=== PATIENT | male | born 1950 | race Caucasian/White ===

== ENCOUNTER 2017-07-22 02:48 | Emergency (ER) | payer MEDICARE, BC | END 2017-07-22 05:35 | disposition home or self-care (01) | LOC: D.ER 02:48 | DX: S00.12XA Contusion of left eyelid and periocular area, initial encounter (principal); W01.0XXA Fall on same level from slipping, tripping and stumbling without subsequent striking against object, initial encounter; Y93.89 Activity, other specified; Y92.019 Unspecified place in single-family (private) house as the place of occurrence of the external cause; S02.32XA Fracture of orbital floor, left side, initial encounter for closed fracture; I95.1 Orthostatic hypotension ==

== ENCOUNTER 2017-07-31 10:12 | Outpatient (CLI) | payer MEDICARE, BC ==
[~2017-07-31] VITALS: Ht 170.2 cm; Wt 97.1 kg
--- NOTE | ~2017-07-31 | HP ---
PATIENT: RICCO AHUJA MEDICAL RECORD: [id number] ACCOUNT: [id number] LOCATION:COT[facility] : 52 ADMISSION DATE: 07/31/17 HISTORY AND PHYSICAL EXAMINATION HISTORY OF PRESENT ILLNESS: Mr. Ahuja had a fall, just about a week ago suffered a left orbital blowout fracture. He has had problems with diplopia, pain on upward gaze, and numbness on the left side of his nose. CT identified a significant orbital blowout fracture. He has been admitted for open reduction internal fixation of left orbital blowout fracture. PAST MEDICAL HISTORY: Includes diabetes, hypertension, COPD, coronary artery disease, CVA. PAST SURGICAL HISTORY: Includes cardiac ablation, cardiac stents, ACL repair. CURRENT MEDICATIONS: Metoprolol, Eliquis which has been held, aspirin has been held, spironolactone, minoxidil, lorazepam, gabapentin, duloxetine, Flexeril. ALLERGIES: HYDROCODONE, LISINOPRIL, AMLODIPINE, ISORDIL, FLECAINIDE. PHYSICAL EXAMINATION: GENERAL: He is healthy appearing. He is alert and oriented. FACE: He has left periorbital ecchymosis. NOSE: No masses, polyps, or drainage. ORAL CAVITY AND OROPHARYNX: No trismus. Tongue protrudes in midline, upper teeth are stable and are sore to him. NECK: No mass. No adenopathy. NEUROLOGICAL: His extraocular movements are intact, but does have some pain on gaze consistent with muscle. Entrapment issues, he has got numbness on the left side of his face in V2 distribution. IMPRESSION: Left orbital blowout fracture. PLAN: ORIF, left orbital blowout fracture. TRANSINT:[id number] Voice Confirmation ID: [id number] DOCUMENT ID: [id number] EMILIA PHILLIPS MD CC: [id number] DICTATION DATE: 07/28/17 0839 INTERIOR ASSEMBLIES DEVELOPER PROVER: 07/28/17 0959 PRE [facility] [address] [place] [address]
[2017-07-31] MEDS ORDERED: LONITEN2.5 MG PO (11:36)
[2017-07-31] MEDS ORDERED: LOVASTATIN40 MG PO (11:36)
[2017-07-31] MEDS ORDERED: ELIQUIS5 MG PO (11:37)
[2017-07-31] MEDS ORDERED: AUGMENTIN 875-11 TAB PO (11:37)
[2017-07-31] MEDS ORDERED: CYMBALTA60 MG PO (11:38)
[2017-07-31] MEDS ORDERED: ATIVAN1 MG PO (11:38)
[2017-07-31] MEDS ORDERED: GABAPENTIN100 MG PO (11:39)
[2017-07-31] MEDS ORDERED: ALDACTONE25 MG PO (11:39)
[2017-07-31] MEDS ORDERED: BAYER CHEWABLE81 MG PO (11:40)
[2017-07-31 11:42] LABS: HEMATOCRIT 44.4 % (42.0-54.0); HEMOGLOBIN 15.5 g/dL (13.5-17.5); MCH 30.8 pg (26.0-34.0); MCHC 34.9 g/dL (31.0-37.0); MCV 88.1 fL (80.0-100.0); MEAN PLATELET VOLUME 9.9 fL (7.4-10.4); RBC 5.04 10x6/uL (4.20-6.10); RDW 12.8 % (11.5-14.5); WBC 9.4 10x3/uL (4.8-10.8)
[2017-07-31 11:43] VITALS: BP 103/67; Ht 170.2 cm; Wt 97.1 kg
[2017-07-31 11:51] LABS: INR 0.97 (0.85-1.17); PROTIME 12.5 SECONDS (11.6-15.0)
[2017-08-02] MEDS ORDERED: METOPROLOL TART25 MG PO (12:53)
== END 2017-07-31 15:20 | disposition home or self-care (01) ==
LOC: D.OPS 10:12 → EDSTATUS 12:00 → D.OPS 12:00 → D.PAN 12:00 → D.OPS 12:20
PROVIDERS: Anesthesiology; Otolaryngology
DX: S02.32XA Fracture of orbital floor, left side, initial encounter for closed fracture (principal); X58.XXXA Exposure to other specified factors, initial encounter; Z01.810 Encounter for preprocedural cardiovascular examination; Z01.811 Encounter for preprocedural respiratory examination; Z01.812 Encounter for preprocedural laboratory examination; Z53.9 Procedure and treatment not carried out, unspecified reason

== ENCOUNTER 2017-08-03 08:23 | Day surgery (SDC) | payer MEDICARE, BC ==
[~2017-08-03] VITALS: Ht 170.2 cm; Wt 97.3 kg
--- NOTE | ~2017-08-03 | OP ---
PATIENT NAME: RICCO HOLBROOK MEDICAL RECORD: [id number] :52 LOCATION:D.MS [id number] ADMISSION DATE:08/03/17 SURGEON: TORREY PHILLIPS MD DATE OF OPERATION: 08/03/2017 PREOPERATIVE DIAGNOSIS: Left orbital floor blowout fracture. POSTOPERATIVE DIAGNOSIS: Left orbital floor blowout fracture. PROCEDURE: ORIF left orbital floor fracture. SURGEON: Torrey Phillips MD ANESTHESIA: General orotracheal. BLOOD LOSS: 1 cc. IMPLANT: Portion of 2.5 mm thick RapidSorb heat malleable plate of the floor of the orbit. COMPLICATIONS: None. DISPOSITION: Recovery stable. DESCRIPTION OF PROCEDURE: He was brought to the operating room and placed in supine position, sedated and intubated by anesthesia. The table was turned 90 degrees. Oral cavity was examined. It was rinsed with Peridex and suctioned. The left upper gingival buccal sulcus was injected with 1 cc of 1% lidocaine with 1:100,000 epinephrine. Face and mouth were prepped and draped in usual sterile fashion. An incision was made with a spatula tip cautery in the upper gingiva buccal sulcus. This was taken down to bone and then the zurita periosteal elevator was used to elevate the tissue off of the anterior maxillary sinus. The V2 nerve was preserved. Hammer and chisel were used to enter the maxillary sinus in the middle and then a large Kerrison punch was used to open that up creating a large enough opening to work through. Then, a 12-Amharic Herrera tip suction was used to evacuate blood clot out of the pretty much the entire sinus there. Once that was complete, the hematoma and dried blood superiorly was visualized that was all suctioned out until just fat and herniated material from the orbit was exposed. A freer was then used to dissect the mucosa off of the bone fragments laterally so they could be identified and then some of the loose bone fragments were removed. A freer was used to dissect just barely round the edge of the defect delineating the orbital floor defect. The defect size was measured and then a piece of the RapidSorb was cut with Metzenbaum scissors and then heated in hot water bath to bend it to shape. First one was too small, so then did another one out of the sheet and was able to get 1 bent nicely with the curved. I was able to pop it up into the medial section first and then laterally and pop it up in there and it reduced the fat herniation and held the orbital floor contents in position nicely. The eye was examined and normal. The sinus was again evacuated. The floor was stable, I palpated that, moved it around and really was very stable and would not bulge out position. The upper gingival buccal sulcus incision was closed with interrupted 3-0 Vicryl. He was awakened, extubated, and transported to recovery in good condition. No complications. TRANSINT:[id number] Voice Confirmation ID: [id number] DOCUMENT ID: [id number] OPERATIVE REPORT [id number] RICCO HOLBROOK, TORREY CHASE at 1145 CC: [id number] DICTATION DATE: 08/03/17 1333 PARTS ADVISOR: 08/03/17 1508 DIS IN 08/03/17 [address] [place] [address]
[~2017-08-03 08:23] MED LIST: ALDACTONE25 MG PO; ATIVAN1 MG PO; AUGMENTIN 875-11 TAB PO; BAYER CHEWABLE81 MG PO; CYMBALTA60 MG PO; ELIQUIS5 MG PO; GABAPENTIN100 MG PO; LONITEN2.5 MG PO; LOVASTATIN40 MG PO; METOPROLOL TART25 MG PO
[2017-08-03 09:27] VITALS: BP 138/88; BMI 33.6
[2017-08-03 14:11] VITALS: BP 121/84
[2017-08-03 14:13] VITALS: Ht 170.2 cm; Wt 97.3 kg
[2017-08-03 14:26] VITALS: BP 129/71
[2017-08-03 14:40] VITALS: BP 144/78
[2017-08-03 14:55] VITALS: BP 140/84
[2017-08-03 15:10] VITALS: BP 143/85
[2017-08-03] MEDS ORDERED: KEFLEX500 MG PO (17:59)
== END 2017-08-03 18:38 | disposition home or self-care (01) ==
LOC: OBSVTIME → D.OPS 08:23 → D.PAN 10:30 → D.OPS 10:30 → D.MS 13:58 → OBSVTIME 18:37 → D.MS 18:37 → D.OPS 18:37 → D.MS 18:38 → D.OPS 18:38
DX: S02.32XA Fracture of orbital floor, left side, initial encounter for closed fracture (principal); W19.XXXA Unspecified fall, initial encounter; E11.9 Type 2 diabetes mellitus without complications; I10 Essential (primary) hypertension; J44.9 Chronic obstructive pulmonary disease, unspecified; I25.10 Atherosclerotic heart disease of native coronary artery without angina pectoris; Z86.73 Personal history of transient ischemic attack (TIA), and cerebral infarction without residual deficits; Z95.5 Presence of coronary angioplasty implant and graft; Z79.01 Long term (current) use of anticoagulants; Z79.82 Long term (current) use of aspirin; Z79.899 Other long term (current) drug therapy; Z88.5 Allergy status to narcotic agent; Z88.8 Allergy status to other drugs, medicaments and biological substances; Z01.812 Encounter for preprocedural laboratory examination

== ENCOUNTER 2017-08-13 19:50 | Inpatient (IN) | payer MEDICARE, BC ==
[~2017-08-13] VITALS: Ht 170.2 cm; Wt 94.3 kg
--- NOTE | ~2017-08-13 | OP ---
PATIENT NAME: RICCO HOLBROOK MEDICAL RECORD: [id number] :52 LOCATION:D.MS Neal2203 ADMISSION DATE:08/13/17 SURGEON: TORREY PHILLIPS MD DATE OF OPERATION: 08/13/2017 PREOPERATIVE DIAGNOSIS: Postoperative bleeding after ORIF of left orbital floor fracture. PROCEDURE: Evacuation of hematoma. SURGEON: Torrey Phillips MD ANESTHESIA: General orotracheal. BLOOD LOSS: Less than 5 cc. SPECIMENS: None. COMPLICATIONS: None. DRAINS: None. DISPOSITION: Recovery stable. DESCRIPTION OF PROCEDURE: He was brought to the operating room and placed in supine position, sedated and intubated by anesthesia. Both sides of the nose had been decongested with Afrin preoperatively. Using a headlight and nasal speculum, the nose was examined. Clot was evacuated from the floor of the nose on the left side, really looked good though. I saw no evidence of the source of bleeding in the nose. Looked like the bleeding was probably coming from the middle meatus and the maxillary sinus. Examination of his mouth: His mouth was rinsed with some Peridex. There was blood and clot spreading out the incision line. The Vicryl sutures were removed. [place] was used to retract that and then the left maxillary sinus was full of clot. That was all suctioned out. To look at, a 0-degree scope and 30-degree scope were used to examine the sinus. The orbital floor looked just fine. There was no bleeding coming from there. Orbital floor implant was then placed, that all looked nice. Blood was running down from around the bone edges and granulation in the floor of the maxillary sinus and around the incision line just diffusely, just granulation and material around the entire circumference of the anterior maxillary sinus wall. Suction cautery was used to cauterize some of the more heaped up granulation until the bleeding was completely stopped, really did not take much. It was irrigated and inspected, carefully suctioned out, and then I used some FloSeal to put in there and then resutured the incision line with interrupted 3-0 Vicryl. The eye exam was normal. Again, reexamined his nose and that looked good. I did observe the maxillary sinus for a few minutes and made sure his blood pressure was normal just to make sure if he was going to bleed, we would see some of it, but there really was not, it really completely stopped and was completely clean and dry. He was awakened, extubated, and transported to recovery in good condition. No complications. On presentation to the ER, he had a blood glucose of 363 and sodium of 127, so he is admitted for observation and Dr. Barrera was consulted for management of some of his medical problems as some of those may be related to his delayed healing and bleeding. OPERATIVE REPORT [id number] RICCO HOLBROOK TRANSINT:[id number] Voice Confirmation ID: [id number] DOCUMENT ID: [id number] TORREY PHILLIPS MD at 1530 CC: [id number] DICTATION DATE: 08/13/172220 TONGUE AND GROOVE MACHINE OPERATOR: 08/14/17 0205 ADM IN [place] [id number] [place] [address]
--- NOTE | ~2017-08-13 | HP ---
PATIENT: RICCO AHUJA MEDICAL RECORD: [id number] ACCOUNT: [id number] LOCATION:D.MS Neal2203 : 52 ADMISSION DATE: 08/13/17 HISTORY AND PHYSICAL EXAMINATION DATE OF ADMISSION: 08/13/2017 HISTORY OF PRESENT ILLNESS: Mr. Ricco Ahuja is a 67-year-old male. He is a couple of weeks out from orbital floor fracture repair. He is on Plavix. He comes back in with the pain in his cheek, pain around his eye and bleeding from the nose and from his incision line in the mouth. PAST SURGICAL HISTORY: Includes cardiac problems with the stents, hypertension, diabetes. MEDICATIONS: He is on multiple medications but has recently restarted his Plavix, which seems to be related to his bleeding. PHYSICAL EXAMINATION: GENERAL: He is healthy appearing, he is alert and oriented, good historian, has normal voice. FACE: He has got some tenderness and swelling over the left cheek. The eye looks good. His extraocular movements are intact. There is no proptosis. No enophthalmos. Extraocular movements are intact. He does not have any diplopia. EYES: Sclerae and conjunctivae look good. ORAL CAVITY AND OROPHARYNX: His incision line is spitting out, he has got a clot coming out through there, he has got a clot in the left side of his nose. NECK: No masses, no adenopathy. Oral cavity and pharynx are normal. CHEST: Clear. CARDIOVASCULAR: Regular rate and rhythm, no murmur. EXTREMITIES: Normal. IMPRESSION: Postoperative bleeding after repair of orbital blowout fracture. Because of the bleeding and his anticoagulation status and the pain under his eye, is concerned about the risk to the vision of that eye, will take him back to the OR for evacuation of hematoma and examination of the area. TRANSINT:[id number] Voice Confirmation ID: [id number] DOCUMENT ID: [id number] EMILIA PHILLIPS MD at 1530 CC: [id number] DICTATION DATE: 08/13/172212 OIL PAINT SHADER: 08/13/17 2346 ADM IN [address] [id number] [place] [address]
--- NOTE | ~2017-08-13 | DS ---
PATIENT:RICCO AHUJA :52 MEDICAL RECORD: [id number] DISCHARGE SUMMARY ADMISSION DATE: 08/13/17 DISCHARGE DATE: 08/16/17 DATE OF ADMISSION: 08/13/2017. DATE OF DISCHARGE: 08/16/2017. ADMISSION DIAGNOSES: Postoperative hematoma, hypertension, uncontrolled diabetes, and hyponatremia. HISTORY: Mr. Ahuja came in postoperatively from repair of orbital floor fracture. He is on Plavix and had hypertension and he had some postoperative bleeding into his left maxillary sinus. He was found to have significant hyponatremia and glucose above 400. HOSPITAL COURSE: He was admitted, he was taken to OR and the bleeding basically at the incision site in the oral cavity was taken care of. The blood was evacuated from the sinus. Everything was fine with his previous surgery and ORIF, but he was admitted to deal with the hyponatremia and to get his diabetes somewhat under control. Dr. Barrera was consulted for management of that. By 08/16/2017, his medical problems were under control. He was discharged to home with follow up with his primary care physician as well as pr for suture removal. TRANSINT:[id number] Voice Confirmation ID: [id number] DOCUMENT ID: [id number] EMILIA PHILILPS MD at 1357 CC: [id number] DICTATION DATE: 09/29/17933 EARLY INTERVENTIONIST: 09/29/17 1214 DIS IN 08/16/17 [address] [address] [place] [address]
--- NOTE | ~2017-08-13 | CN ---
PATIENT NAME:RICCO HOLBROOK MEDICAL RECORD: [id number] : 52 LOCATION:D.MS Neal2203 ADMIT DATE: 08/13/17 ACCOUNT: [id number] CONSULTING PHYSICIAN: JULIA ORR MD REFERRING PHYSICIAN: EMILIA PHILLIPS MD DATE OF CONSULTATION: 08/15/2017 HISTORY OF PRESENT ILLNESS: A 67-year-old gentleman with status post blow-out orbital fracture, had repair approximately a week ago, had repeated bleeding this Monday. He was on Eliquis. Previously had history of intervention and was on Plavix; however, his stent placed was in 2014. We are asked to assist with anticoagulation. PAST MEDICAL HISTORY: Includes: 1. History of diabetes mellitus. 2. Hypertension. 3. Atrial fibrillation. 4. Coronary artery disease as described above. 5. Dyslipidemia. 6. Peripheral neuropathy. MEDICATIONS: Typically include Eliquis 5 mg p.o. daily, minoxidil 2.5 b.i.d., lovastatin 40 every day, Spironolactone 25 every day, metoprolol 25 b.i.d., Cymbalta 60 every day, aspirin 81 every day, Neurontin 100 t.i.d., lorazepam 1 mg b.i.d. p.r.n. SOCIAL HISTORY: He is a nonsmoker. Easily takes care of all his ADLs. Actually he is a bit on exercise and diet since April, has lost 50 pounds. REVIEW OF SYSTEMS: The patient reports easy bruising but reports no swollen glands. The patient reports no fever, no night sweats, no significant weight gain, no significant weight loss. No significant exercise tolerance. The patient reports no dry eyes, no irritation, no vision change. Patient reports no difficulty hearing and no ear pain. Patient reports no frequent nose bleeds or nose and sinus problems. Patient reports on arm pain on exertion. No shortness of breath while lying down. No history of heart murmur. Patient reports no cough, no wheezing or coughing up blood. Patient reports no abdominal pain, no vomiting. Normal appetite. No diarrhea and not vomiting blood. No nausea and no constipation. Patient reports no incontinence. No difficulty urinating. No hematuria. No increased frequency. Patient reports no muscle aches. No weakness, no arthralgias, no back pain. No swelling of the extremities. Patient reports no abnormal mole, no jaundice, no rashes. Reports no loss of consciousness. No weakness and no numbness. No seizures, dizziness, or headaches. The patient reports no depression, no sleep disturbance, feeling safe in a relationship and no alcohol abuse. Patient reports on fatigue. Reports no runny nose or sinus pressure. No itching, no hives, and no frequent sneezing. ALLERGIES: IMDUR, HYDROCODONE, FENTANYL, AMLODIPINE, FLECAINIDE, HYDRALAZINE. PHYSICAL EXAMINATION: GENERAL: Middle-aged gentleman in no acute distress. VITAL SIGNS: Blood pressure 132/86, pulse 71 and regular. HEENT: Normocephalic, atraumatic. NECK: No bruits noted. CONSULT REPORT [id number] RICCO HOLBROOK HEART: Regular, II/ systolic ejection murmur. LUNGS: Good air excursion. ABDOMEN: Soft, nontender. EXTREMITIES: Pulse 2+. There is no edema. IMPRESSION: At this point in time, remains in a sinus rhythm post-ablation. No urgency to restart his NOAC and can do this at Dr. Phillips's discretion, well over a year out from his intervention, so no indication for antiplatelet therapy besides aspirin at this point. TRANSINT:[id number] Voice Confirmation ID: [id number] DOCUMENT ID: [id number] JULIA ORR MD at 0920 CC: [id number] DICTATION DATE: 08/15/17 1443 OFFICE HELPER CLERICAL: 08/15/17 1501 DIS IN 08/16/17 [facility] [address] [place] [address]
[~2017-08-13 19:50] MED LIST changes: +KEFLEX500 MG PO
[2017-08-13 20:22] LABS: BASOPHILS 0.2 % (0-2); EOSINOPHILS 0.5 % (0-7); HEMATOCRIT 41.4 % (42.0-54.0); HEMOGLOBIN 14.6 g/dL (13.5-17.5); IMMATURE GRANULOCYTES 0.5 % (0-5); LYMPHOCYTES 9.3 % (15-50); MCH 30.6 pg (26.0-34.0); MCHC 35.3 g/dL (31.0-37.0); MCV 86.8 fL (80.0-100.0); MEAN PLATELET VOLUME 10.1 fL (7.4-10.4); MONOCYTES 7.4 % (2-11); NEUTROPHILS 82.1 % (40-80); PLATELET COUNT 205 10x3/uL (130-400); RBC 4.77 10x6/uL (4.20-6.10); RDW 12.5 % (11.5-14.5); WBC 12.5 10x3/uL (4.8-10.8)
[2017-08-13 20:30] LABS: APTT 28.2 SECONDS (22.8-39.4); INR 1.1 (0.85-1.17); PROTIME 13.8 SECONDS (11.6-15.0)
[2017-08-13 20:42] LABS: ALBUMIN 3.9 g/dL (3.4-5.0); ANION GAP 15.6 mmol/L (8-16); BILIRUBIN - TOTAL 0.48 mg/dL (0.2-1.3); CALCIUM 9.1 mg/dL (8.5-10.1); CARBON DIOXIDE 21.4 mmol/L (21.0-32.0); CREATININE - SERUM 1.8 mg/dL (0.6-1.3)
[2017-08-13 23:05] VITALS: BP 129/83; BP 129/86
[2017-08-13 23:20] VITALS: BP 122/78
[2017-08-13 23:35] VITALS: BP 133/69
[2017-08-13 23:50] VITALS: BP 133/86
[2017-08-14] VITALS (11 sets, daily range): BP systolic 116–139; BP diastolic 69–93; Ht 170.2 cm; Wt 94.3 kg
[2017-08-14 01:32] LABS: APPEARANCE CLEAR (CLEAR); BILIRUBIN NEGATIVE (NEGATIVE); COLOR YELLOW (YELLOW); GLUCOSE 500 mg/dL (NEGATIVE); KETONE NEGATIVE (NEGATIVE); NITRITE NEGATIVE (NEGATIVE); PROTEIN NEGATIVE (NEGATIVE); SPECIFIC GRAVITY 1.015 (1.005-1.020); UROBILINOGEN NORMAL (NORMAL)
[2017-08-14 05:11] LABS: BASOPHILS 0.1 % (0-2); EOSINOPHILS 0.1 % (0-7); HEMATOCRIT 43.7 % (42.0-54.0); HEMOGLOBIN 15.2 g/dL (13.5-17.5); IMMATURE GRANULOCYTES 0.3 % (0-5); LYMPHOCYTES 4.2 % (15-50); MCH 30.6 pg (26.0-34.0); MCHC 34.8 g/dL (31.0-37.0); MCV 87.9 fL (80.0-100.0); MEAN PLATELET VOLUME 10.3 fL (7.4-10.4); NEUTROPHILS 94.3 % (40-80); PLATELET COUNT 223 10x3/uL (130-400); RBC 4.97 10x6/uL (4.20-6.10); RDW 12.8 % (11.5-14.5); WBC 13.1 10x3/uL (4.8-10.8)
[2017-08-14 05:23] LABS: ANION GAP 18.3 mmol/L (8-16); BILIRUBIN - TOTAL 0.71 mg/dL (0.2-1.3); CALCIUM 9.4 mg/dL (8.5-10.1); CARBON DIOXIDE 20.5 mmol/L (21.0-32.0); CREATININE - SERUM 1.8 mg/dL (0.6-1.3); PROTEIN - SERUM 8.7 g/dL (6.4-8.2)
[2017-08-14 05:26] LABS: POTASSIUM - SERUM 6.8 mmol/L (3.5-5.1)
[2017-08-14 16:00] LABS: POTASSIUM - SERUM 5.3 mmol/L (3.5-5.1)
[2017-08-15 04:21] LABS: BASOPHILS 0 % (0-2); EOSINOPHILS 0 % (0-7); HEMATOCRIT 38.1 % (42.0-54.0); HEMOGLOBIN 13.5 g/dL (13.5-17.5); IMMATURE GRANULOCYTES 0.4 % (0-5); LYMPHOCYTES 6.7 % (15-50); MCH 31.1 pg (26.0-34.0); MCHC 35.4 g/dL (31.0-37.0); MCV 87.8 fL (80.0-100.0); MEAN PLATELET VOLUME 10.2 fL (7.4-10.4); MONOCYTES 4.6 % (2-11); NEUTROPHILS 88.3 % (40-80); PLATELET COUNT 252 10x3/uL (130-400); RBC 4.34 10x6/uL (4.20-6.10); RDW 12.8 % (11.5-14.5)
[2017-08-15 04:25] LABS: WBC 18.5 10x3/uL (4.8-10.8)
[2017-08-15 04:41] LABS: ALBUMIN 3.4 g/dL (3.4-5.0); ANION GAP 15.1 mmol/L (8-16); BILIRUBIN - TOTAL 0.63 mg/dL (0.2-1.3); CALCIUM 8.9 mg/dL (8.5-10.1); CARBON DIOXIDE 24.6 mmol/L (21.0-32.0); CREATININE - SERUM 1.6 mg/dL (0.6-1.3); POTASSIUM - SERUM 4.7 mmol/L (3.5-5.1); PROTEIN - SERUM 7.4 g/dL (6.4-8.2)
[2017-08-15 06:13] VITALS: BP 133/82
[2017-08-15 08:33] VITALS: BP 132/86
[2017-08-15 23:07] VITALS: BP 127/81
[2017-08-16 05:23] VITALS: BP 128/81
[2017-08-16 05:40] LABS: BASOPHILS 0.1 % (0-2); EOSINOPHILS 0.1 % (0-7); HEMATOCRIT 37.8 % (42.0-54.0); HEMOGLOBIN 12.9 g/dL (13.5-17.5); IMMATURE GRANULOCYTES 0.4 % (0-5); LYMPHOCYTES 12.1 % (15-50); MCH 30.4 pg (26.0-34.0); MCHC 34.1 g/dL (31.0-37.0); MCV 89.2 fL (80.0-100.0); MEAN PLATELET VOLUME 10.1 fL (7.4-10.4); MONOCYTES 6.5 % (2-11); NEUTROPHILS 80.8 % (40-80); PLATELET COUNT 226 10x3/uL (130-400); RBC 4.24 10x6/uL (4.20-6.10); RDW 12.7 % (11.5-14.5)
[2017-08-16 06:02] LABS: ALBUMIN 3.3 g/dL (3.4-5.0); ANION GAP 13.3 mmol/L (8-16); BILIRUBIN - TOTAL 0.64 mg/dL (0.2-1.3); CALCIUM 9.1 mg/dL (8.5-10.1); CARBON DIOXIDE 26.2 mmol/L (21.0-32.0); CREATININE - SERUM 1.4 mg/dL (0.6-1.3); POTASSIUM - SERUM 4.5 mmol/L (3.5-5.1); PROTEIN - SERUM 7.2 g/dL (6.4-8.2)
[2017-08-16 06:20] LABS: WBC 13.8 10x3/uL (4.8-10.8)
[2017-08-16 08:05] VITALS: BP 105/73
[2017-08-16 12:35] VITALS: BP 132/82
[2017-08-16] MEDS ORDERED: PERCOCET 5-3251 TAB PO (15:39)
== END 2017-08-16 17:16 | disposition home or self-care (01) | DRG 983 ==
LOC: D.ER 19:50 → D.MS 22:15
PROVIDERS: Family Medicine; Internal Medicine Nephrology; Otolaryngology
PROC: 09C Ear, Nose, Sinus, Extirpation (ICD-10-PCS; principal; 2017-08-13 21:00)
DX: J95.861 Postprocedural hematoma of a respiratory system organ or structure following other procedure (principal); T45.525A Adverse effect of antithrombotic drugs, initial encounter; I10 Essential (primary) hypertension; E87.5 Hyperkalemia; E86.0 Dehydration; E11.65 Type 2 diabetes mellitus with hyperglycemia

== ENCOUNTER → 2018-07-17 09:31 | Outpatient (CLI) | payer MEDICARE, BC ==
[2017-08-14 13:08] VITALS: BMI 32.6
[~2018-07-17 09:31] MED LIST changes: +PERCOCET 5-3251 TAB PO
[2018-07-17 10:31] LABS: CREATININE - SERUM 1.8 mg/dL (0.6-1.3)
== END | disposition home or self-care (01) ==
LOC: D.CT 09:30
PROVIDERS: Internal Medicine Cardiovascular Disease
DX: Z86.73 Personal history of transient ischemic attack (TIA), and cerebral infarction without residual deficits (principal)